=== PATIENT | male | born 1990 | race Hispanic/Latino ===

== ENCOUNTER 2024-03-19 18:49 | Emergency (ER) | payer BC, OTHER ==
[~2024-03-19] VITALS: Ht 165.1 cm; Wt 97.5 kg
[2024-03-19] MEDS ORDERED: METH4TAB3 PO (20:22)
[2024-03-19] MEDS ORDERED: AMOX500C2 PO ×2 (20:22→20:25)
[2024-03-19 20:44] VITALS: BP 132/73; PULSE 77; RESP 16; O2SAT 100
== END 2024-03-19 21:11 | disposition home or self-care (01) ==
LOC: EDH 18:49
DX: J02.9 Acute pharyngitis, unspecified (principal); R22.1 Localized swelling, mass and lump, neck